=== PATIENT | female | born 1955 | race Caucasian/White ===

== ENCOUNTER 2018-10-27 10:06 | Outpatient (CLI) | payer MEDICARE | END 2018-10-27 10:07 | disposition short-term general hospital (02) | LOC: EMS 10:06 | PROVIDERS: ATTEND Surgery | DX: M25.572 Pain in left ankle and joints of left foot (principal); M25.551 Pain in right hip; W18.30XA Fall on same level, unspecified, initial encounter; Y92.009 Unspecified place in unspecified non-institutional (private) residence as the place of occurrence of the external cause | CPT/HCPCS: A0425; A0427 ==

== ENCOUNTER 2020-11-14 20:10 | Emergency (ER) | payer MEDICARE ==
[2020-11-14 20:26] VITALS: BP 150/72
[2020-11-14 20:36] LABS: BILIRUBIN,URINE NEGATIVE (NEGATIVE); GLUCOSE, URINE (UA) NEGATIVE (NEGATIVE); KETONES,URINE (UA) TRACE mg/dL (NEGATIVE); LEUKOCYTE ESTERASE, URINE LARGE (NEGATIVE); NITRITE,URINE NEGATIVE (NEGATIVE); OCCULT BLOOD,URINE LARGE (NEGATIVE); PH,URINE 6.5 PH (5.0-7.5); PROTEIN,URINE 30 mg/dL (NEGATIVE); UROBILINOGEN,URINE 0.2 (NORMAL) E.U./dL (NORMAL)
[2020-11-14 20:37] LABS: CLARITY,URINE SL. CLOUDY (CLEAR)
[2020-11-14] MEDS ORDERED: PHENAZOPYRIDINE 100 MG TABLET PO STA (20:39)
[2020-11-14] MEDS ORDERED: cephALEXin 250 MG CAPSULE PO STA (20:40)
--- NOTE | 2020-11-14 20:40 | ED Physician Documentation ---
History of Present Illness - Stated complaint Stated Complaint: FEMALE - Chief complaint Chief Complaint: UTI - Additonal information Additional information: 5-year-old female presents emergency department for evaluation of 2 days of dysu tiffany urgency and frequency. Reports she is on fire. States that she has a history of recurrent urinary tract infections but has not had one for many many years. No recent antibiotics. No recent sexual activity. Past surgical history includes total abdominal hysterectomy previous appendectomy. Patient denies cough, congestion fevers flank pain hematuria or vomiting. Review of Systems Constitutional: denies: Fever, Chills Eyes: reports: Reviewed and negative Ears: reports: Reviewed and negative Throat: reports: Reviewed and negative Respiratory: reports: Reviewed and negative GI: denies: Abdominal Pain, Nausea, Vomiting, Constipation, Diarrhea, Hematemesis : reports: Dysuria, Frequency, Hesitancy. denies: Hematuria Skin: reports: Reviewed and negative PD PAST MEDICAL HISTORY - Allergies Allergies/Adverse Reactions: Allergies Allergy/AdvReac Type Severity Reaction Status Date / Time NSAIDS (Non-Steroidal Allergy Unknown Verified 11/14/20 20:23 Anti-Inflamma PD ED PE NORMAL - General General: Alert and oriented X 3, No acute distress - Cardiac Cardiac: RRR, No murmur - Respiratory Respiratory: Clear bilaterally - Abdomen Abdomen: Normal bowel sounds, Soft, Non distended. No: Non tender (Slight suprapubic tenderness without guarding or rebound. No flank or CVA tenderness elicited.) - Back Back: No CVA TTP - Derm Derm: Normal color, No rash Results - Vitals Vitals: Vital Signs - 24 hr 11/14/20 20:23 Temperature 36.5 C Heart Rate 86 Respiratory 16 Rate Blood Pressure 150/72 H O2 Saturation 98 Oxygen O2 Source Room air - Labs Labs: Laboratory Tests 11/14/20 20:25 Urine Color YELLOW Urine Clarity SL. CLOUDY Urine pH 6.5 Ur Specific [place] 1.020 Urine Protein 30 H Urine Glucose (UA) NEGATIVE Urine Ketones TRACE Urine Occult Blood LARGE H Urine Nitrite NEGATIVE Urine Bilirubin NEGATIVE Urine Urobilinogen 0.2 (NORMAL) Ur Leukocyte Esterase LARGE H Ur Microscopic Review INDICATED Urine Culture Comments Not Reportable PD MEDICAL DECISION MAKING - ED course Complexity details: reviewed results, re-evaluated patient, d/w patient ED course: 64-year-old female presents to the emergency department for evaluation of acute dysuria urgency and frequency for 2 days. Feels similar to previous urinary tract infections. No flank pain fevers or vomiting. UA is consistent with infection. However no complicating features and exam is not consistent with pyelonephritis. Patient was given first dose of cephalexin here in the emergency department and will be discharged with a 7-day course. Emergent return precautions discussed. Departure - Departure Disposition: Home, Self Care Clinical Impression: Acute cystitis Qualifiers: Hematuria presence: with hematuria Qualified Code(s): N30.01 - Acute cystitis with hematuria Condition: Stable Record reviewed to determine appropriate education?: Yes Instructions: ED UTI Cystitis Female Comments: Cele you do have an infection in your urine. We are sending it for a culture. I am starting you on a medication called cephalexin. Please take twice daily for the next week. I am also prescribing a medication called Pyridium. Please take twice daily for the next 3 days. This will help reduce bladder spasm and pain when you urinate however use caution it will cause your urine to turn bright orange. Please return to the emergency department if you have worsening symptoms despite the antibiotics, any fevers, flank pain or vomiting.
[2020-11-14 20:42] LABS: BACTERIA,URINE Moderate /HPF (None Seen); MUCUS,URINE Few Strands; RBC,URINE TNTC /HPF (0-5); SQUAMOUS EPITHELIAL CELL,UR FEW Squamous (<= Few); WBC,URINE >25 /HPF (0-5)
== END 2020-11-14 20:53 | disposition home or self-care (01) ==
LOC: ED 20:10
DX: N30.01 Acute cystitis with hematuria (principal)
CPT/HCPCS: 81001; 87086; 87181; 99283; A9270; 81003

== ENCOUNTER 2020-11-17 20:31 | Emergency (ER) | payer MEDICARE ==
--- NOTE | 2020-11-17 21:06 | ED Physician Documentation ---
History of Present Illness - Stated complaint Stated Complaint: ALLERGIC REACTION - Chief complaint Chief Complaint: General - Additonal information Additional information: 64-year-old female presents the emergency department for concerns that she may be having an allergic reaction. She reports that today she has had progressive blanching erythema that is extended from her mid ankles up to her thighs. It is a well demarcated line. It is not tender there is no pruritus there is no blistering. I saw her on the of this month with dysuria and diagnosed her with a UTI. Her urine culture ultimately grew a pansensitive E. coli. She was started on Keflex twice daily. This is her only new medication. She reports that her urinary symptoms have markedly improved with the cephalexin. she was prescibed a 7 day course. However she also reports that about 6 weeks ago her primary care provider started her on amlodipine and hydrochlorothiazide for her history of hypertension. She states that when she started the amlodipine she noticed that she began to have edema and swelling of both her lower legs as well some minor redness of her feet extending to her ankles that she did not think much about. With this progressive redness of her lower legs today she has taken Benadryl. She denies any oral lesions, there is no cough or fever. There is no tenderness of the legs. Review of Systems Constitutional: denies: Fever, Chills Eyes: reports: Reviewed and negative Nose: reports: Reviewed and negative Throat: denies: Dental pain / toothache, Oral lesions / sores, Sore throat Cardiac: denies: Chest pain / pressure, Palpitations Respiratory: denies: Dyspnea, Cough GI: denies: Abdominal Pain, Abdominal Swelling, Nausea, Vomiting : denies: Dysuria, Frequency Skin: reports: Rash. 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 - Present Medications Home Medications: Ambulatory Orders Medication Instructions Recorded Confirmed Phenazopyridine HCl [Pyridium] 200 mg PO TID PRN #6 tablet 11/14/20 11/17/20 cephALEXin [Keflex] 500 mg PO BID #14 11/14/20 11/17/20 Alprazolam [Xanax] 0.25 mg PO DAILY 11/17/20 11/17/20 Amlodipine Besylate [Norvasc] 10 mg PO DAILY 11/17/20 11/17/20 Hydrochlorothiazide 12.5 mg PO DAILY 11/17/20 11/17/20 Montelukast Sodium [Singulair] 4 mg PO DAILY 11/17/20 11/17/20 Nitrofurantoin Monohyd/M-Cryst 100 mg PO BID #6 cap 11/17/20 [Macrobid 100 mg Capsule] - Allergies Allergies/Adverse Reactions: Allergies Allergy/AdvReac Type Severity Reaction Status Date / Time cephalexin Allergy Rash Verified 11/17/20 21:29 NSAIDS (Non-Steroidal Allergy Unknown Verified 11/14/20 20:23 Anti-Inflamma - Social History Does the pt smoke?: No Smoking Status: Never smoker Does the pt drink ETOH?: Yes ETOH Use: Wine Does the pt have substance abuse?: No - Immunizations Immunizations are current?: Yes - POLST Patient has POLST: No PD ED PE EXPANDED - General General: Alert, Anxious - Cardiac Cardiac: Tachy, Radial strong equal, Pedal strong equal, Cap refill < 2 sec. No: Murmur Present - Respiratory Respiratory: Clear to ausultation adela. No: Distress, Labored - Abdomen Abdomen: Normal Bowel sounds. No: Tender to palpation - Female Female : Normal external - Derm Derm: Rash, Other (Generalized blanchable erythema of bilateral lower extremities that extends from the feet to the mid thighs. Nonvesicular nonpustular negative Nikolsky's. Nontender to palpation.) - Extremities Extremities: Pedal edema bilateral - Neuro Neuro: Alert and Oriented X 3. No: Confused, Disoriented - GCS Eye Opening: Spontaneous Motor: Obeys Commands Verbal: Oriented Total: 15 Results - Vitals Vitals: Vital Signs - 24 hr 11/17/20 11/17/20 20:34 20:37 Temperature 36.8 C 36.8 C Heart Rate 113 H 113 H Respiratory 19 19 Rate Blood Pressure 179/79 H 179/79 H O2 Saturation 100 100 Oxygen O2 Source Room air PD MEDICAL DECISION MAKING - ED course Complexity details: reviewed results, re-evaluated patient, d/w patient ED course: 64-year-old female presents emergency department for concerns that she may be having an allergic reaction. She was seen by myself on the and diagnosed with a urinary tract infection and started on cephalexin. This is a daily 3 of that medication. She has noticed today a very progressive erythema that has developed from her mid ankles up to her mid thighs. It is not painful it is blanchable, negative Nikolsky's no pustules. There are no intraoral lesions, tongue lip swelling, shortness of air or chest pain. I do suspect that this erythema is a drug eruption secondary to the Keflex. Cephalexin will be listed as an allergy on her chart and she is advised to discontinue taking it. She was given a one-time dose of Decadron here in the emergency department and advised to continue the Benadryl at home. She will see her primary care provider in follow-up early next week for reevaluation of her blood pressure. She is concerned that the amlodipine could be the cause of this erythema but at this juncture I am more suspicious of the cephalexin of continued her on the amlodipine. She will be started on Macrobid for an additional 3 days to complete a full course of antibiotics for her urinary tract infection. Emergent return precautions were discussed for blistering, fevers pain or lesions, pustules or any significant worsening of this rash. Departure - Departure Disposition: 01 Home, Self Care Clinical Impression: Drug eruption Allergic reaction Qualifiers: Encounter type: initial encounter Qualified Code(s): T78.40XA - Allergy, unspecified, initial encounter Condition: Stable Record reviewed to determine appropriate education?: Yes Follow-Up: PATIENCE URBAN MD [Primary Care Provider] - Prescriptions: Nitrofurantoin Monohyd/M-Cryst [Macrobid 100 mg Capsule] 100 mg PO BID #6 cap Comments: Cele you were seen today in the emergency department for a red rash on your leg. As we discussed I suspect that this is an allergy to the to the antibiotic cephalexin. This has been added to your allergy profile here in the emergency department. You were given a one-time dose of an oral steroid called Decadron here in the emergency department. I would like you to continue to take the Benadryl at home. In order to complete the full course of treatment for your urinary tract infection please fill the prescription for the Macrobid and begin taking twice daily for an additional 3 days. If your rash worsens in any way, it begins to blister after being touched, you develop pustules, you have sores or lesions in your mouth, you develop any chest pain or shortness of air please return immediately to the emergency department for a second evaluation.
[2020-11-17] MEDS ORDERED: DEXAMETHASONE 10 MG/ML VIAL PO STA (21:15)
[2020-11-17] MEDS ORDERED: CHERRY SYRUP 10 ML UDC PO ONE (21:15)
[2020-11-17 21:44] VITALS: BP 160/72
== END 2020-11-17 21:43 | disposition home or self-care (01) ==
LOC: ED 20:31
DX: T78.40XA Allergy, unspecified, initial encounter (principal); I10 Essential (primary) hypertension
CPT/HCPCS: 99282; 99284; A9270

== ENCOUNTER 2021-05-01 21:55 | Emergency (ER) | payer MEDICARE ==
[2021-05-01] MEDS ORDERED: cloNIDine 0.1 MG TABLET PO STA (22:17)
[2021-05-01 22:35] LABS: BASOPHILS # (AUTO) 0.1 10^3/uL (0.0-0.1); BASOPHILS % (AUTO) 1.1 %; EOSINOPHILS # (AUTO) 0.6 10^3/uL (0.0-0.7); EOSINOPHILS % (AUTO) 8.1 %; HCT - HEMATOCRIT 38.7 % (37.0-47.0); HGB - HEMOGLOBIN 12.6 g/dL (12.0-16.0); LYMPHOCYTES # (AUTO) 1.9 10^3/uL (1.5-3.5); LYMPHOCYTES % (AUTO) 26.7 %; MEAN CORPUSCULAR HEMOGLOBIN 30.4 pg (27.0-31.0); MEAN CORPUSCULAR HGB CONC 32.6 g/dL (32.0-36.0); MEAN CORPUSCULAR VOLUME 93.5 fL (81.0-99.0); MEAN PLATELET VOLUME 10.2 fL (7.9-10.8); MONOCYTES # (AUTO) 0.7 10^3/uL (0.0-1.0); MONOCYTES % (AUTO) 9.4 %; NEUTROPHILS # (AUTO) 3.8 10^3/uL (1.5-6.6); NEUTROPHILS % (AUTO) 54.4 %; PLT - PLATELET COUNT 198 10^3/uL (130-450); RED BLOOD COUNT 4.14 10^6/uL (4.20-5.40); RED CELL DISTRIBUTION WIDTH 13.3 % (12.0-15.0)
[2021-05-01] MEDS ORDERED: MECLIZINE 12.5 MG TABLET PO STA (22:37)
--- NOTE | 2021-05-01 22:37 | ED Physician Documentation ---
History of Present Illness - Stated complaint Stated Complaint: DIZZY, HIGH BP - Chief complaint Chief Complaint: Neuro - History obtained from History obtained from: Patient - Additonal information Additional information: 65-year-old woman with history of anxiety on as needed Xanax, high blood pressure not on medications, presents with dizziness for the past 2 days with sensation of the room spinning. Patient also states that she has been feeling extremely anxious and she took her blood pressure and it was elevated. Denies chest pain, shortness of breath, nausea, vision changes, lightheadedness, neurological deficit. 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 - Present Medications Home Medications: Ambulatory Orders Medication Instructions Recorded Confirmed Alprazolam [Xanax] 0.25 mg PO DAILY 11/17/20 05/02/21 Montelukast Sodium [Singulair] 4 mg PO DAILY 11/17/20 05/02/21 Losartan [Cozaar] 50 mg PO DAILY #30 tablet 05/01/21 Meclizine [Antivert] 12.5 mg PO Q6H PRN #30 tablet 05/01/21 - Allergies Allergies/Adverse Reactions: Allergies Allergy/AdvReac Type Severity Reaction Status Date / Time amlodipine Allergy Edema Verified 05/02/21 00:28 cephalexin Allergy Rash Verified 05/01/21 22:16 hydrochlorothiazide Allergy Edema Verified 05/02/21 00:29 NSAIDS (Non-Steroidal Allergy Unknown Verified 05/01/21 22:16 Anti-Inflamma - Social History Does the pt smoke?: No Smoking Status: Never smoker Does the pt drink ETOH?: Yes Does the pt have substance abuse?: No - Immunizations Immunizations are current?: Yes - POLST Patient has POLST: No PD ED PE NORMAL - Vitals Vital signs reviewed: Yes - General General: Alert and oriented X 3, No acute distress, Well developed/nourished - HEENT HEENT: Atraumatic, PERRL, EOMI - Neck Neck: Supple, no meningeal sign - Cardiac Cardiac: RRR - Respiratory Respiratory: No respiratory distress, Clear bilaterally - Abdomen Abdomen: Non tender, Non distended - Derm Derm: Normal color - Extremities Extremities: No deformity - Neuro Neuro: Alert and oriented X 3, care rep 2-12 intact, No motor deficit, No sensory deficit, Normal speech, Other (cerebellar testing, strength, gait WNL) - Psych Psych: Other (anxious mood and affect) Results - Vitals Vitals: Oxygen O2 Source Room air - Labs Labs: Laboratory Tests 05/01/21 05/01/21 05/01/21 22:32 22:32 22:32 WBC 7.0 RBC 4.14 L Hgb 12.6 Hct 38.7 MCV 93.5 MCH 30.4 MCHC 32.6 RDW 13.3 Plt Count 198 MPV 10.2 Neut # (Auto) 3.8 Lymph # (Auto) 1.9 [place] # (Auto) 0.7 Eos # (Auto) 0.6 Baso # (Auto) 0.1 Absolute Nucleated RBC 0.00 Nucleated RBC % 0.0 Sodium 143 Potassium 3.6 Chloride 107 Carbon Dioxide 26 Anion Gap 10.0 BUN 15 Creatinine 0.7 Estimated GFR (MDRD) 84 L Glucose 139 H Calcium 9.4 Total Bilirubin 0.5 AST 29 ALT 28 Alkaline Phosphatase 45 Troponin I High Sens 3.0 Total Protein 7.1 Albumin 4.7 Globulin 2.4 Albumin/Globulin Ratio 2.0 Lipase 50 PD MEDICAL DECISION MAKING - ED course ED course: 65-year-old woman presents with sensation of vertigo and elevated blood pressure. Patient states that she has had improvement in the emergency department but does feel extremely anxious and is requesting medication for anxiety as well as a possible script for BP meds. she thinks that she is allergic to HCTZ and amlodipine therefore we will trial losartan. strict return precautions given patient will f/u with her pmd for further management. Departure - Departure Disposition: 01 Home, Self Care Clinical Impression: Hypertension, Dizziness Condition: Good Instructions: Hypertension Control, ED Vertigo Unspecified Prescriptions: Meclizine [Antivert] 12.5 mg PO Q6H PRN #30 tablet PRN Reason: Vertigo Losartan [Cozaar] 50 mg PO DAILY #30 tablet Comments: You are seen in the emergency department for dizziness and high blood pressure. Your lab work, EKG, and chest x-ray were normal. Your physical exam was normal except for high blood pressure that improved after getting clonidine and Xanax here in the emergency department. I am prescribing you losartan which you can take daily. You should follow-up with your new doctor at the [facility] for further blood pressure management. Please also follow-up with your doctor in regards to your dizziness since you may need to get further testing or evaluation. Return to the emergency department if you have any new or worsening symptoms or other concerns. Note that your prescriptions were sent electronically to [facility]. Discharge Date/Time: 05/02/21 00:29
--- NOTE | 2021-05-01 22:46 | XRAY Report ---
PROCEDURE: Chest 1 View X-Ray INDICATIONS: Chest Pain TECHNIQUE: One view of the chest was acquired. COMPARISON: None. FINDINGS: Surgical changes and devices: Postsurgical changes partially visualized within the lower cervical spi ne. Lungs and pleura: No pleural effusions or pneumothorax. Lungs are clear. Mediastinum: Mediastinal contours appear normal. Heart size is normal. Bones and chest wall: No suspicious bony lesions. Overlying soft tissues appear unremarkable. IMPRESSION: 1. No acute cardiopulmonary disease. Reviewed by: Ishan Price MD on 05/01/2021 10:45 PM PDT Approved by: Ishan Price MD on 05/01/2021 10:45 PM PDT Station ID: [id number]
[2021-05-01 22:50] LABS: ALBUMIN 4.7 g/dL (3.2-5.5); BILIRUBIN,TOTAL 0.5 mg/dL (0.2-1.0); CALCIUM 9.4 mg/dL (8.5-10.3); CREATININE 0.7 mg/dL (0.4-1.0); POTASSIUM 3.6 mmol/L (3.5-5.0); TOTAL PROTEIN 7.1 g/dL (6.7-8.2)
[2021-05-01] MEDS ORDERED: ALPRAZolam 0.25 MG TABLET PO STA (23:03)
[2021-05-01 23:27] VITALS: BP 187/88
== END 2021-05-02 00:29 | disposition home or self-care (01) ==
LOC: ED 21:55
DX: I10 Essential (primary) hypertension (principal); R42 Dizziness and giddiness; F41.9 Anxiety disorder, unspecified
CPT/HCPCS: 36415; 71045; 80053; 83690; 84484; 85025; 93005; 99283; 99284; A9270

== ENCOUNTER 2022-04-04 12:20 | Emergency (ER) | payer MEDICARE ==
--- OUTSIDE RECORDS SUMMARY | 2022-04-04 12:44 | EXTERNAL MEDICAL SUMMARY RPT | Continuity of Care Document ---
:1955 Author Organization [facility] [address] [place] [address] Phone Allergies No information. Encounters No information. Functional Status No information. Immunizations No information. Medications date description facility [id number]+0000 nitrofurantoin monohyd/m-cryst [facility] [id number]+0000 nitrofurantoin monohyd/m-cryst [facility] radha [id number]+0000 cetirizine All [phone]+0000 cetirizine [facility] C radha [id number]+0000 nitrofurantoin monohyd/m-cryst All [id number]+0000 nitrofurantoin monohyd/m-cryst [facility] rad[facility] [phone]+0000 nifedipine All [id number]+0000 nifedipine [facility] radha [id number]+0000 montelukast All [id number]+0000 montelukast [facility] radha [phone]+0000 alprazolam All [id number]+0000 alprazolam [facility] Miryam garcia [id number]+0000 alprazolam All [phone]+0000 alprazolam [facility] C radha [id number]+0000 cetirizine All [phone]+0000 cetirizine [facility] C radha [phone]+0000 nifedipine All [id number]+0000 nifedipine [facility] radha [id number]+0000 alendronate All [phone]+0000 alendronate [facility] C radha [phone]+0000 montelukast All [phone]+0000 montelukast [facility] Miryam garcia [phone]+0000 albuterol sulfate All [id number]+0000 albuterol sulfate [facility] C radha [phone]+0000 losartan All [id number]+0000 losartan [facility] C radha [id number]+0000 albuterol sulfate All [id number]+0000 albuterol sulfate [facility] C radha [phone]+0000 alendronate All [phone]+0000 alendronate [facility] C radha [phone]+0000 losartan All [id number]+0000 losartan [facility] Miryam garcia Problems No information. Procedures date description facility +0000 Visit Code Hold All [id number]+0000 Visit Code Hold [facility] Thien Results/Labs No information. Social History No information. Vital Signs date measurement value units +0000 BMI BMI 24.42 kg/m2 [id number]+0000 BP_diastolic BP_diastolic 91 mm[H g] [id number]+0000 BP_systolic BP_systolic 169 mm[Hg] [id number]+0000 heart_rate heart_rate 80 /min [id number]+0000 height_metric height_metric 172.72 cm [id number]+0000 height_standard height_standard 68 in +0000 respiration_rate respiration_rate 15 /min [id number]+0000 temperature_metric temperature_metric 36.44 C [id number]+0000 temperature_standard temperature_standard 9 7.6 F [id number]+0000 weight_metric weight_metric 72.57 kg [id number]+0000 weight_standard weight_standard 160 lb [id number]+0000 BMI BMI 24.42 kg/m2 01010534381917+0000 BP_diastolic BP_diastolic 91 mm[H g] [id number]+0000 BP_systolic BP_systolic 169 mm[Hg] [id number]+0000 heart_rate heart_rate 80 /min [id number]+0000 height_metric height_metric 172.72 cm +0000 height_standard height_standard 68 in +0000 respiration_rate respiration_rate 15 /min +0000 temperature_metric temperature_metric 36.44 C +0000 temperature_standard temperature_standard 9 7.6 F +0000 weight_metric weight_metric 72.57 kg +0000 weight_standard weight_standard 160 lb
[2022-04-04 12:53] LABS: BASOPHILS # (AUTO) 0.1 10^3/uL (0.0-0.1); BASOPHILS % (AUTO) 0.7 %; EOSINOPHILS # (AUTO) 0.1 10^3/uL (0.0-0.7); EOSINOPHILS % (AUTO) 1.2 %; HCT - HEMATOCRIT 41.7 % (37.0-47.0); LYMPHOCYTES # (AUTO) 1.4 10^3/uL (1.5-3.5); LYMPHOCYTES % (AUTO) 13.1 %; MEAN CORPUSCULAR HEMOGLOBIN 31.3 pg (27.0-31.0); MEAN CORPUSCULAR HGB CONC 33.6 g/dL (32.0-36.0); MEAN CORPUSCULAR VOLUME 93.1 fL (81.0-99.0); MONOCYTES # (AUTO) 0.7 10^3/uL (0.0-1.0); MONOCYTES % (AUTO) 6.2 %; NEUTROPHILS # (AUTO) 8.5 10^3/uL (1.5-6.6); NEUTROPHILS % (AUTO) 78.4 %; PLT - PLATELET COUNT 219 10^3/uL (130-450); RED BLOOD COUNT 4.48 10^6/uL (4.20-5.40); RED CELL DISTRIBUTION WIDTH 13.2 % (12.0-15.0); WHITE BLOOD COUNT 10.8 x10^3/uL (4.8-10.8)
[2022-04-04 13:06] LABS: ALBUMIN 4.8 g/dL (3.2-5.5); ALBUMIN/GLOBULIN RATIO 1.5 (1.0-2.2); BILIRUBIN,TOTAL 0.8 mg/dL (0.2-1.0); CALCIUM 9.5 mg/dL (8.5-10.3); CREATININE 0.8 mg/dL (0.4-1.0); POTASSIUM 3.8 mmol/L (3.5-5.0); TOTAL PROTEIN 7.9 g/dL (6.7-8.2)
--- NOTE | 2022-04-04 13:15 | ED Physician Documentation ---
History of Present Illness - Stated complaint Stated Complaint: FEMALE / CRAMPING - Chief complaint Chief Complaint: Abd Pain - Additonal information Additional information: 66-year-old female presents emergency department for evaluation of bright red rectal bleeding. She reports that yesterday evening she began to get intense abdominal cramping. She states that she sat on the toilet and had multiple loose watery bowel movements. She did not look at the stool until she had 3 or 4 bowel movements and noticed that they were bright red. She reports that she was straining hard. She has had no fevers. Denies that this could have been vaginal or urinary bleeding. She has a history of colon polyps and is on a every 3-year colonoscopy schedule. No vomiting. No urinary symptoms Past surgical history includes open appendectomy Review of Systems Constitutional: denies: Fever, Chills Cardiac: reports: Chest pain / pressure Respiratory: reports: Reviewed and negative GI: reports: Abdominal Pain, Diarrhea, Bloody / black stool. denies: Nausea, Vomiting : reports: Reviewed and negative Skin: reports: Reviewed and negative Musculoskeletal: reports: Reviewed and negative PD PAST MEDICAL HISTORY - Past Medical History Cardiovascular: Hypertension, High cholesterol Psych: Anxiety Musculoskeletal: Osteoarthritis - Past Surgical History Past Surgical History: Yes General: Appendectomy Ortho: Other /[employer]: Hysterectomy - Present Medications Home Medications: Ambulatory Orders Medication Instructions Recorded Confirmed Montelukast Sodium [Singulair] 4 mg PO DAILY 11/17/20 04/04/22 Losartan [Cozaar] 50 mg PO DAILY #30 tablet 05/01/21 04/04/22 Alendronate [Fosamax] 70 mg PO .WEEKLY 04/04/22 04/04/22 NIFEdipine [Procardia Xl] 60 mg PO HS 04/04/22 04/04/22 - Allergies Allergies/Adverse Reactions: Allergies Allergy/AdvReac Type Severity Reaction Status Date / Time amlodipine Allergy Edema Verified 04/04/22 12:36 cephalexin Allergy Rash Verified 04/04/22 12:36 hydrochlorothiazide Allergy Edema Verified 04/04/22 12:36 NSAIDS (Non-Steroidal Allergy Unknown Verified 04/04/22 12:36 Anti-Inflamma - Social History Does the pt smoke?: No Smoking Status: Never smoker Does the pt drink ETOH?: Yes Does the pt have substance abuse?: No - Immunizations Immunizations are current?: Yes - POLST Patient has POLST: No PD ED PE NORMAL - General General: Alert and oriented X 3, No acute distress, Well developed/nourished - Neck Neck: Supple, no meningeal sign - Cardiac Cardiac: RRR, No murmur - Respiratory Respiratory: No respiratory distress, Clear bilaterally - Abdomen Abdomen: Normal bowel sounds, Soft, Non tender - Rectal Rectal: Other (Chaperoned rectal exam reveals no rectal tenderness or fissures. Digital rectal exam showed no blood or stool in the vault. Nontender) - Back Back: No CVA TTP, No spinal TTP - Derm Derm: Normal color, Warm and dry - Extremities Extremities: No deformity, No tenderness to palpate, Normal ROM s pain - Neuro Neuro: Alert and oriented X 3, decorating machine tender 2-12 intact Eye Opening: Spontaneous Motor: Obeys Commands Verbal: Oriented GCS Score: 15 Results - Vitals Vitals: Vital Signs - 24 hr 04/04/22 12:30 Temperature 36.7 C Heart Rate 73 Respiratory 16 Rate Blood Pressure 146/65 H O2 Saturation 99 Oxygen O2 Source Room air - Labs Labs: Laboratory Tests 04/04/22 04/04/22 04/04/22 12:45 12:48 12:48 WBC 10.8 RBC 4.48 Hgb 14.0 Hct 41.7 MCV 93.1 MCH 31.3 H MCHC 33.6 RDW 13.2 Plt Count 219 MPV 10.0 Neut # (Auto) 8.5 H Lymph # (Auto) 1.4 L [place] # (Auto) 0.7 Eos # (Auto) 0.1 Baso # (Auto) 0.1 Absolute Nucleated RBC 0.00 Nucleated RBC % 0.0 Sodium 139 Potassium 3.8 Chloride 103 Carbon Dioxide 25 Anion Gap 11.0 BUN 14 Creatinine 0.8 Estimated GFR (MDRD) 72 L Glucose 145 H Calcium 9.5 Total Bilirubin 0.8 AST 27 ALT 24 Alkaline Phosphatase 44 Total Protein 7.9 Albumin 4.8 Globulin 3.1 Albumin/Globulin Ratio 1.5 Lipase 39 Urine Color YELLOW Urine Clarity CLEAR Urine pH 6.5 Ur Specific [place] 1.010 Urine Protein NEGATIVE Urine Glucose (UA) NEGATIVE Urine Ketones NEGATIVE Urine Occult Blood NEGATIVE Urine Nitrite NEGATIVE Urine Bilirubin NEGATIVE Urine Urobilinogen 0.2 (NORMAL) Ur Leukocyte Esterase SMALL H Urine RBC 0-5 Urine WBC 0-3 Ur Epithelial Cells FEW Transitional Ur Squamous Epith Cells MOD Squamous H Urine Bacteria Few Ur Microscopic Review INDICATED Urine Culture Comments NOT INDICATED - Rads (name of study) CT abd Radiology: Final report received (No acute intra-abdominal findings. Diverticulosis. No acute diverticulitis. ) PD MEDICAL DECISION MAKING - ED course Complexity details: reviewed results, re-evaluated patient, considered differential, d/w patient ED course: 66-year-old female presents emergency department for evaluation of lower abdominal cramping and bright red blood per rectum. Symptoms began last night. No fevers or vomiting. No urinary symptoms. She does have a history of precancerous polyps in her colon. She is on a q. 3-year colonoscopy schedule. Today in the emergency department CBC and electrolytes were without acute worrisome abnormality. Her abdominal exam was rather benign with no focal tenderness elicited. However given the history a CT of the abdomen was completed. No findings for obvious surgical cause. No perforation. No obvious diverticulitis. I suspect the patient has a bleeding polyp. But given he modynamic stability and healthy hemoglobin she will follow-up closely with her can reconditioner to arrange a emergent diagnostic colonoscopy. Emergent return precautions to the emergency department were discussed for fevers, fainting episodes severe worsening bleeding or sensation of feeling lightheaded Departure - Departure Disposition: 01 Home, Self Care Clinical Impression: Rectal bleeding Condition: Stable Record reviewed to determine appropriate education?: Yes Instructions: ED Hematochezia Stable Comments: Cele you are seen today in the emergency department because yesterday evening you began developing severe abdominal cramping and then had rectal bleeding. Here in the emergency department your hemoglobin is normal at 14. Your screening electrolytes also showed no worrisome abnormalities. We did do a CT of your abdomen that did not show an obvious cause for the bleeding. Specifically nothing to suggest diverticulitis, a ruptured bowel or a bowel obstruction. Because you had a history of precancerous polyps you may likely have a bleeding polyp as the cause for your rectal bleeding. It is important that you follow-up closely with your can reconditioner. You should receive a more emergent diagnostic colonoscopy. Reasons to return to the emergency department would include any fainting episodes, severe worsening rectal bleeding, sustained heart rates greater than 120 at rest.
[2022-04-04 13:41] LABS: BILIRUBIN,URINE NEGATIVE (NEGATIVE); GLUCOSE, URINE (UA) NEGATIVE (NEGATIVE); KETONES,URINE (UA) NEGATIVE (NEGATIVE); LEUKOCYTE ESTERASE, URINE SMALL (NEGATIVE); NITRITE,URINE NEGATIVE (NEGATIVE); OCCULT BLOOD,URINE NEGATIVE (NEGATIVE); PH,URINE 6.5 PH (5.0-7.5); PROTEIN,URINE NEGATIVE (NEGATIVE); UROBILINOGEN,URINE 0.2 (NORMAL) E.U./dL (NORMAL)
[2022-04-04 13:45] LABS: CLARITY,URINE CLEAR (CLEAR)
[2022-04-04 13:52] LABS: BACTERIA,URINE Few /HPF (None Seen); EPITHELIAL CELLS,UR FEW Transitional /HPF (<= Few); RBC,URINE 0-5 /HPF (0-5); SQUAMOUS EPITHELIAL CELL,UR MOD Squamous (<= Few); WBC,URINE 0-3 /HPF (0-5)
--- NOTE | 2022-04-04 14:05 | CT Report ---
PROCEDURE: Abdomen/Pelvis WO INDICATIONS: rectal bleeding TECHNIQUE: Noncontrast 5 mm thick sections acquired from the diaphragms to the symphysis. 5 mm coronal and sagi ttal reformats were then performed. For radiation dose reduction, the following was used: automated exposure control, adjustment of mA and/or kV according to patient size. COMPARISON: None. FINDINGS: Image quality: Excellent. ABDOMEN: Lung bases: Lung bases are clear. Heart size is normal. Solid organs: Liver and spleen are normal in size. Gallbladder is unremarkable Pancreas is normal in contours. No adrenal nodules. Kidneys are normal in size, without hydronephrosis or nephrolithia sis. Peritoneum and bowel: Unenhanced bowel loops demonstrate normal wall thickness and caliber. There is scattered colonic diverticular outpouchings present. No mucosal thickening or pericolonic fat strand ing to suggest inflammatory changes. The appendix is not visualized; however there are no ancillary f inding such as right lower quadrant free fluid or fat stranding to suggest acute appendicitis. No fr ee fluid or air. Nodes and vessels: No retroperitoneal or mesenteric adenopathy by size criteria. Aorta and inferior vena cava are normal in caliber. Miscellaneous: No ventral hernias. PELVIS: Genitourinary: Bladder wall thickness is normal. Miscellaneous: No inguinal hernias or adenopathy. Bones: No suspicious bony lesions. No vertebral body compression fractures. There is sacralization at the left side at L5-S1. IMPRESSION: 1. No acute intra-abdominal findings. Please note, this is a noncontrast study which limits evaluatio n of decompressed bowel and solid organs. 2. Diverticulosis. No acute diverticulitis. 3. The appendix is not visualized; however there are no ancillary findings to suggest acute appendici tis. Reviewed by: Savanah Alicea MD on 04/04/2022 2:04 PM PDT Approved by: Savanah Alicea MD on 04/04/2022 2:04 PM PDT Station ID: [id number]
[2022-04-04 14:29] VITALS: BP 153/86
== END 2022-04-04 14:29 | disposition home or self-care (01) ==
LOC: ED 12:20
DX: K62.5 Hemorrhage of anus and rectum (principal); I10 Essential (primary) hypertension
CPT/HCPCS: 36415; 80053; 81001; 81003; 83690; 85025; 87086; 99284

== ENCOUNTER 2023-03-25 08:00 | Outpatient (CLI) | payer MEDICARE | END 2023-03-25 23:59 | disposition home or self-care (01) | LOC: LAB 08:00 | PROVIDERS: ATTEND Internal Medicine | DX: R39.15 Urgency of urination (principal) | CPT/HCPCS: 87077; 87086 ==

== ENCOUNTER 2023-04-22 08:00 | Outpatient (CLI) | payer MEDICARE | END 2023-04-22 23:59 | disposition home or self-care (01) | LOC: LAB.S 08:00 | PROVIDERS: ATTEND Physician Assistant | DX: R30.0 Dysuria (principal) | CPT/HCPCS: 87077; 87086; 87181 ==

== ENCOUNTER 2023-05-08 08:00 | Outpatient (CLI) | payer MEDICARE | END 2023-05-08 23:59 | disposition home or self-care (01) | LOC: LAB 08:00 | PROVIDERS: ATTEND Urology | DX: R30.0 Dysuria (principal) | CPT/HCPCS: 87086 ==

== ENCOUNTER 2024-02-28 14:08 | Emergency (ER) | payer MEDICARE ==
[2024-02-28 14:28] VITALS: BP 136/71; O2SAT 98
--- NOTE | 2024-02-28 14:43 | ED Physician Documentation ---
PD HPI FEMALE - Stated complaint Stated Complaint: FEMALE - Chief complaint Chief Complaint: UTI - History obtained from History obtained from: Patient - Additional information Additional information: 68-year-old female presents stating "I have a urinary tract infection, I know what it feels like." She has had several UTIs in the past, typically E. coli per chart review, and feels like she has urinary tract infection with urgency, frequency, burning sensation and suprapubic pain. Symptoms started yesterday. She has not had any flank pain, no fever or chills, no nausea or vomiting. No h istory of pyelonephritis or ureteral stones. She has been on Keflex in the past but now this is listed as an allergy, and the patient states that she did well with Levaquin which was prescribed in the past by Dr. Izaguirre. She has been taking Pyridium yesterday and today with some relief. Review of Systems Constitutional: reports: Reviewed and negative Eyes: reports: Reviewed and negative Ears: reports: Reviewed and negative Nose: reports: Reviewed and negative Throat: reports: Reviewed and negative Cardiac: reports: Reviewed and negative Respiratory: reports: Reviewed and negative GI: reports: Reviewed and negative : reports: Dysuria, Frequency, Hesitancy Skin: reports: Reviewed and negative Musculoskeletal: reports: Reviewed and negative Neurologic: reports: Reviewed and negative PD PAST MEDICAL HISTORY - Past Medical History Past Medical History: Yes Cardiovascular: Hypertension, High cholesterol Respiratory: None Neuro: None Endocrine/Autoimmune: None GI: None 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 : Chronic bladder infection HEENT: None Psych: Anxiety Musculoskeletal: Osteoarthritis Derm: None - Past Surgical History Past Surgical History: Yes General: Appendectomy 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 - Present Medications Home Medications: Ambulatory Orders Medication Instructions Recorded Confirmed Montelukast Sodium [Singulair] 4 mg PO DAILY 11/17/20 02/28/24 Losartan [Cozaar] 50 mg PO DAILY #30 tablet 05/01/21 02/28/24 NIFEdipine [Procardia Xl] 60 mg PO HS 04/04/22 02/28/24 levoFLOXacin [Levaquin] 250 mg PO DAILY 5 Days #5 tablet 02/28/24 - Allergies Allergies/Adverse Reactions: Allergies Allergy/AdvReac Type Severity Reaction Status Date / Time amlodipine Allergy Edema Verified 02/28/24 14:20 cephalexin Allergy Rash Verified 02/28/24 14:20 hydrochlorothiazide Allergy Edema Verified 02/28/24 14:20 NSAIDS (Non-Steroidal Allergy Unknown Verified 02/28/24 14:20 Anti-Inflamma - Social History Does the pt smoke?: No Smoking Status: Never smoker Does the pt drink ETOH?: Yes ETOH Use: Wine Does the pt have substance abuse?: No - Immunizations Immunizations are current?: Yes - POLST Patient has POLST: No PD ED PE NORMAL - Vitals Vital signs reviewed: Yes - General General: Alert and oriented X 3, No acute distress, Well developed/nourished - HEENT HEENT: Atraumatic, Moist mucous membranes - Cardiac Cardiac: RRR, No murmur - Respiratory Respiratory: No respiratory distress, Clear bilaterally - Abdomen Abdomen: Normal bowel sounds, Soft, Non tender, Non distended - Back Back: No CVA TTP - Derm Derm: Normal color, Warm and dry Results - Vitals Vitals: Vital Signs - 24 hr 02/28/24 14:21 Temperature 36.2 C L Heart Rate 84 Respiratory 16 Rate Blood Pressure 136/71 H O2 Saturation 98 Oxygen O2 Source Room air - Labs Labs: Laboratory Tests 02/28/24 14:18 Urine Color ORANGE Urine Clarity SL. CLOUDY Urine pH Ur Specific [place] Urine Protein Urine Glucose (UA) Urine Ketones Urine Occult Blood Urine Nitrite Urine Bilirubin COLOR INTERFERENCE Urine Urobilinogen Ur Leukocyte Esterase Urine RBC TNTC H Urine WBC >25 H Urine WBC Clumps PRESENT Ur Squamous Epith Cells RARE Squamous Urine Bacteria Few Ur Microscopic Review INDICATED Urine Culture Comments INDICATED PD Medical Decision Making - ED course Complexity details: reviewed results, re-evaluated patient, considered differential, d/w patient ED course: 68-year-old female presented with concern for UTI. She states it feels exactly the same as prior UTIs she has had. She has no systemic symptoms, no flank pain, no fever or chills. Differentials considered today included UTI, pyelonephritis, ureteral stone, yeast infection, atrophic vaginitis, Among others. The patient has been on Pyridium and oxygen that has made it difficult to interpret the sample but there are white blood cells in the urinalysis and patient's symptoms consistent with a likely UTI. She has no signs of pyelonephritis or ureteral stone on exam is well-appearing. She has done well with Levaquin in the past and has allergy listed to cephalexin. She is also on Losartan therefore I prefer not to use Bactrim. I reviewed her prior urine cultures and it is typically E. coli or contaminant. will use I therefore advised that we can use the Levaquin and the question of potential side effects of this medication, pending the urine culture. Patient advised to continue supportive measures, stable hydrated and I discussed return precautions if she should develop a fever, flank pain or new concerns. Discharged home in stable condition. Departure - Departure Disposition: , Self Care Clinical Impression: Urinary tract infection Qualifiers: Urinary tract infection type: acute cystitis Hematuria presence: without hematuria Qualified Code(s): N30.00 - Acute cystitis without hematuria Condition: Good Instructions: ED UTI Cystitis Female Prescriptions: levoFLOXacin [Levaquin] 250 mg PO DAILY 5 Days #5 tablet Comments: Cele, you do have symptoms of a urinary tract infection again. We will send the urine for culture. In the past you have grown E. coli which is a common urinary tract infection bacteria. Typically I would treat this with the cephalexin but this is listed as an allergy for you. Therefore I am going to give you the Levaquin that you have had in the past, but it can be a shorter and smaller dose than you had in the past because you have not had any recent procedures. We will send this for culture and if it grows a bacteria that is resistant to this we will notify you by phone. Continue to stay well-hydrated, and you can take the Pyridium as needed for pain. Forms: PCP List Discharge Date/Time: 02/28/24 14:45
[2024-02-28 14:53] LABS: CLARITY,URINE SL. CLOUDY (CLEAR)
[2024-02-28 14:58] LABS: BILIRUBIN,URINE COLOR INTERFERENCE (NEGATIVE)
[2024-02-28 14:59] LABS: BACTERIA,URINE Few /HPF (None Seen); RBC,URINE TNTC /HPF (0-5); SQUAMOUS EPITHELIAL CELL,UR RARE Squamous (<= Few); WBC CLUMPS,URINE PRESENT; WBC,URINE >25 /HPF (0-5)
== END 2024-02-28 14:45 | disposition home or self-care (01) ==
LOC: ED 14:08
DX: N30.00 Acute cystitis without hematuria (principal); I10 Essential (primary) hypertension; E78.00 Pure hypercholesterolemia, unspecified
CPT/HCPCS: 81001; 81003; 87077; 87086; 87181; 99282; 99283

== ENCOUNTER 2024-04-04 16:26 | Emergency (ER) | payer MEDICARE ==
[2024-04-04 17:09] LABS: BILIRUBIN,URINE NEGATIVE (NEGATIVE); GLUCOSE, URINE (UA) NEGATIVE (NEGATIVE); KETONES,URINE (UA) NEGATIVE (NEGATIVE); LEUKOCYTE ESTERASE, URINE SMALL (NEGATIVE); NITRITE,URINE POSITIVE (NEGATIVE); OCCULT BLOOD,URINE TRACE-INTA (NEGATIVE); PROTEIN,URINE NEGATIVE (NEGATIVE); UROBILINOGEN,URINE 0.2 (NORMAL) E.U./dL (NORMAL)
[2024-04-04 17:15] VITALS: BP 148/84; O2SAT 96
[2024-04-04 17:19] LABS: CLARITY,URINE CLEAR (CLEAR)
[2024-04-04 17:29] LABS: BACTERIA,URINE Rare /HPF (None Seen); SQUAMOUS EPITHELIAL CELL,UR RARE Squamous (<= Few); WBC,URINE >25 /HPF (0-5)
--- NOTE | 2024-04-04 19:09 | ED Physician Documentation ---
PD HPI FEMALE - Stated complaint Stated Complaint: - Chief complaint Chief Complaint: UTI - History obtained from History obtained from: Patient - History of Present Illness Timing - onset: Today Pain level max: 3 Pain level max: 3 Associated symptoms: Dysuria, Urinary frequency. No: Fever, Chest/shoulder pain, Abdominal pain, Back pain, Pelvic pain, Vaginal pain, Vaginal bleeding, Vaginal discharge - Additional information Additional information: Patient is a 68-year-old female who complains of urinary frequency, urgency and burning. Started today. History of chronic recurrent UTIs. States she normally gets put on levofloxacin which works well for her. No fevers. No chills. No vomiting. No back pain. No abdominal pain. 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: Hysterectomy - Present Medications Home Medications: Ambulatory Orders Medication Instructions Recorded Confirmed Montelukast Sodium [Singulair] 4 mg PO DAILY 11/17/20 04/04/24 Losartan [Cozaar] 50 mg PO DAILY #30 tablet 05/01/21 04/04/24 NIFEdipine [Procardia Xl] 60 mg PO HS 04/04/22 04/04/24 Calcium Carbonate [Calcium] 1 tab PO DAILY 04/04/24 04/04/24 levoFLOXacin [Levaquin] 250 mg PO BID #10 tablet 04/04/24 - Allergies Allergies/Adverse Reactions: Allergies Allergy/AdvReac Type Severity Reaction Status Date / Time amlodipine Allergy Edema Verified 04/04/24 16:56 cephalexin Allergy Rash Verified 04/04/24 16:56 hydrochlorothiazide Allergy Edema Verified 04/04/24 16:56 NSAIDS (Non-Steroidal Allergy Unknown Verified 04/04/24 16:56 Anti-Inflamma - Social History Does the pt smoke?: No Smoking Status: Never smoker Does the pt drink ETOH?: Yes ETOH Use: Wine Does the pt have substance abuse?: No - Immunizations Immunizations are current?: Yes - POLST Patient has POLST: No PD ED PE NORMAL - Vitals Vital signs reviewed: Yes - General General: Alert and oriented X 3, No acute distress - HEENT HEENT: Moist mucous membranes - Respiratory Respiratory: No respiratory distress - Abdomen Abdomen: Soft, Non tender, Non distended - Back Back: No CVA TTP - Derm Derm: Warm and dry - Neuro Neuro: Alert and oriented X 3 - Psych Psych: Normal mood, Normal affect Results - Vitals Vitals: Vital Signs - 24 hr 04/04/24 16:56 Temperature 36.5 C Heart Rate 85 Respiratory 16 Rate Blood Pressure 148/84 H O2 Saturation 96 Oxygen O2 Source Room air - Labs Labs: Microbiology 04/04/24 17:00 Urine Culture - Preliminary Urine,Random Laboratory Tests 04/04/24 17:00 Urine Color YELLOW Urine Clarity CLEAR Urine pH 6.0 Ur Specific [place] <=1.005 Urine Protein NEGATIVE Urine Glucose (UA) NEGATIVE Urine Ketones NEGATIVE Urine Occult Blood TRACE-INTA Urine Nitrite POSITIVE H Urine Bilirubin NEGATIVE Urine Urobilinogen 0.2 (NORMAL) Ur Leukocyte Esterase SMALL H Urine RBC 6-10 H Urine WBC >25 H Ur Squamous Epith Cells RARE Squamous Urine Bacteria Rare Ur Microscopic Review INDICATED Urine Culture Comments INDICATED PD Medical Decision Making - ED course Complexity details: reviewed results, re-evaluated patient, considered differential, d/w patient ED course: Patient with her usual symptoms of urinary tract infection. She does have a history of multiple antibiotic allergies, she states that usually they place her on Levaquin. We did discuss risks and benefits of fluoroquinolone treatment. She accepts the risks. Patient is well appearing non-toxic. Afebrile. No evidence of sepsis. No evidence of pyelonephritis. Patient counseled regarding signs and symptoms for which I believe an urgent re-evaluation would be necessary. Patient with good understanding of and agreement to plan and is comfortable going home at this time. This document was made in part using voice recognition software. While efforts are made to proofread this document, sound alike and grammatical errors may occur. Departure - Departure Disposition: 01 Home, Self Care Clinical Impression: Urinary tract infection Qualifiers: Urinary tract infection type: acute cystitis Hematuria presence: without hematuria Qualified Code(s): N30.00 - Acute cystitis without hematuria Condition: Good Instructions: ED UTI Cystitis Female Follow-Up: your,doctor in 1 week [Other] Prescriptions: levoFLOXacin [Levaquin] 250 mg PO BID #10 tablet Comments: Your prescription was sent to [email or web address] in [place]. Please take the antibiotics as prescribed. Please follow-up with your doctor for further care and return if you worsen. Forms: PCP List Discharge Date/Time: 04/04/24 19:28
[2024-04-04] MEDS: levoFLOXacin 250 MG TABLET PO STA (19:25)
== END 2024-04-04 19:28 | disposition home or self-care (01) ==
LOC: ED 16:26
DX: N30.00 Acute cystitis without hematuria (principal); I10 Essential (primary) hypertension; E78.00 Pure hypercholesterolemia, unspecified; Z79.899 Other long term (current) drug therapy; Z87.440 Personal history of urinary (tract) infections
CPT/HCPCS: 81001; 87086; 99283; A9270; 81003

== ENCOUNTER 2024-04-09 08:00 | Outpatient (CLI) | payer MEDICARE | END 2024-04-09 23:59 | disposition home or self-care (01) | LOC: LAB.N 08:00 | PROVIDERS: ATTEND Registered Nurse | DX: N39.0 Urinary tract infection, site not specified (principal) | CPT/HCPCS: 87086 ==

== ENCOUNTER 2024-04-28 15:39 | Outpatient (CLI) | payer MEDICARE | END 2024-04-28 15:40 | disposition home or self-care (01) | LOC: LAB 15:39 | PROVIDERS: ATTEND Urology | DX: R30.0 Dysuria (principal) | CPT/HCPCS: 87086 ==